=== PATIENT | male | born 1970 | race Caucasian/White ===

== ENCOUNTER 2018-02-26 06:29 | Emergency (ER) | payer OTHER ==
[2018-02-26 06:39] VITALS: PULSE 95
[2018-02-26] MEDS ORDERED: AMOXIL 500 MG PO ONE (07:05)
[2018-02-26] MEDS ORDERED: XYLOCAINE VISCOUS 2% 20 ML CUP PO ONE (07:05)
[2018-02-26] MEDS ORDERED: CETACAINE SPRAY TP ONE (07:06)
[2018-02-26] MEDS ORDERED: MAALOX ES 30 ML UNIT DOSE PO ONE (07:06)
--- NOTE | 2018-02-26 07:13 | ERPHSYRPT ---
- History of Present Illness Time Seen by Provider: 02/26/18 07:04 Source: patient Exam Limitations: no limitations Patient Subjective Stated Complaint: left side facial swelling and tooth pain x 3 days. staets broke off tooth. Triage Nursing Assessment: swollen left side of face.. pain in tooth. started 3 days ago.. no fever. Physician History: Pt developed left sided toothache, left facial swelling yesterday morning. He denies dental procedure, injury, severe headaches, vomiting, fever, other complaints, except nauseated. He is nonsmoker, denies any medical problems. Timing/Duration: gradual onset, days (2) Severity: severe ENT Location: facial, dental Prearrival Treatment: no prearrival treatment Modifying Factors: Improves With: nothing Associated Symptoms: denies symptoms Allergies/Adverse Reactions: No Known Drug Allergies Allergy (Unverified 06/03/16 00:21) Hx Tetanus, Diphtheria Vaccination/Date Given: Yes Hx Influenza Vaccination/Date Given: No Hx Pneumococcal Vaccination/Date Given: No Immunizations Up to Date: No - Review of Systems Constitutional: No Symptoms Ears, Nose, & Throat: Other (toothache, left facial swelling and pain), No Throat Swelling, No Hoarse, No Painful Swallowing All Other Systems: Reviewed and Negative - Past Medical History Pertinent Past Medical History: Yes Neurological History: No Pertinent History ENT History: No Pertinent History Cardiac History: No Pertinent History Respiratory History: No Pertinent History Endocrine Medical History: No Pertinent History Musculoskeletal History: No Pertinent History GI Medical History: No Pertinent History History: No Pertinent History Psycho-Social History: No Pertinent History Male Reproductive Disorders: No Pertinent History - Past Surgical History Past Surgical History: Yes Musculoskeletal: Orthopedic Surgery Other Surgical History: KNEE, PINS IN LEG - Social History Smoking Status: Never smoker Exposure to second hand smoke: No Drug Use: none Patient Lives Alone: No - Nursing Vital Signs Nursing Vital Signs: Initial Vital Signs Temperature 97.5 F 02/26/18 06:31 Pulse Rate 95 H 02/26/18 06:31 Blood Pressure 170/104 02/26/18 06:31 O2 Sat by Pulse Oximetry 95 02/26/18 06:31 Pain Scale Pain Intensity 8 - Physical Exam General Appearance: no apparent distress Eye Exam: bilateral eye: PERRL, EOMI Nasal Exam: normal inspection Throat Exam: normal, dental tenderness (left lower first molar (#30) : the crown is completely worn off, decayed, no gum swelling or discharge, left facial swelling, no redness or warmth.), No excessive drooling, No voice changes Neck Exam: normal inspection, non-tender, supple, trachea midline, No JVD, No lymphadenopathy (R), No lymphadenopathy (L) Cardiovascular/Respiratory Exam: chest non-tender, normal breath sounds, regular rate/rhythm, heart sounds normal, no respiratory distress, No no JVD Abdominal Exam: non-tender, soft Neurologic Exam: alert, oriented x 3, cooperative, normal mood/affect Skin Exam: normal color, warm, dry, No rash SpO2 Interpretation: normal SpO2: 95 Oxygen Delivery: Room Air - Course Nursing assessment & vital signs reviewed: Yes Ordered Tests: Medication Summary Discontinued Medications Generic Name Dose Route Start Last Admin Trade Name Freq PRN Reason Stop Dose Admin Al Hydrox/Mg Hydrox/Simethicone 30 ml 02/26/18 07:06 Maalox Es 30 Ml Unit Dose PO 02/26/18 07:07 STAT ONE Al Hydrox/Mg Hydrox/Simethicone Confirm 02/26/18 07:17 Maalox Es 30 Ml Unit Dose Administered 02/26/18 07:18 Dose 30 ml .ROUTE .STK-MED ONE Amoxicillin 500 mg 02/26/18 07:05 Amoxil 500 Mg PO 02/26/18 07:06 STAT ONE Amoxicillin Confirm 02/26/18 07:17 Amoxil 500 Mg Administered 02/26/18 07:18 Dose 500 mg .ROUTE .STK-MED ONE Benzocaine/Butamben/Tetracaine HCl 2 spray 02/26/18 07:06 Cetacaine [place] TP 02/26/18 07:07 ONCE ONE Lidocaine HCl 7.5 ml 02/26/18 07:05 Xylocaine Viscous 2% 20 Ml Cup PO 02/26/18 07:06 STAT ONE Lidocaine HCl Confirm 02/26/18 07:17 Xylocaine Hcl Viscous * Administered 02/26/18 07:18 Dose 1 ml .ROUTE .STK-MED ONE - Progress Progress: improved Progress Note: 02/26/18 07:18 Pt has been afebrile, no sign of difficulty breathing, stridor or distress. - Departure Time of Disposition: :18 Departure Disposition: Home Clinical Impression: Dental abscess Condition: Stable Critical Care Time: No Referrals: SAMMIE MORENO MD [Primary Care Provider] - Instructions: Tooth Abscess (DC), Tooth Decay, Adult (DC) Additional Instructions: Follow up with dentist, return if severe headaches, vomiting, high fever> 103 F , or difficulty swallowing! Prescriptions: Amoxicillin 500 mg PO TID 10 Days #30 capsule
[2018-02-26] MEDS ORDERED: AMOXIL 500 MG ONE (07:17)
[2018-02-26] MEDS ORDERED: MAALOX ES 30 ML UNIT DOSE ONE (07:17)
[2018-02-26] MEDS ORDERED: XYLOCAINE HCl Viscous ONE (07:17)
[2018-02-26 07:50] VITALS: BP 164/80; O2SAT 98
== END 2018-02-26 07:47 | disposition home or self-care (01) ==
LOC: ED 06:29
DX: K04.7 Periapical abscess without sinus (principal)
CPT/HCPCS: 99283; A9270-GY

== ENCOUNTER 2020-08-26 06:15 | Emergency (ER) | payer OTHER ==
[2020-08-26 06:27] VITALS: BP 155/94; O2SAT 98
[2020-08-26] MEDS ORDERED: Sodium Chloride 0.9% 1000 ML 1,000 ML IV STA (06:38)
[2020-08-26] MEDS ORDERED: Hydromorphone 1 mg/ml Injection IV ONE (06:38)
[2020-08-26] MEDS ORDERED: Zofran 4 MG/2 ML VIAL IV ONE (06:38)
[2020-08-26] MEDS ORDERED: Zofran 4 MG/2 ML VIAL ONE (06:44)
[2020-08-26] MEDS ORDERED: Hydromorphone 1 mg/ml Injection ONE (06:44)
[2020-08-26] MEDS ORDERED: Sodium Chloride 0.9% 1000 ML 1,000 ML ONE (06:44)
[2020-08-26 06:52] LABS: Absolute Neutrophil Ct (ANC) 3.26 (1.4-6.9); BASOPHIL % 0.5 % (0.0-0.4); Basophil (Absolute #) 0.04 (0-0.4); Eosinophil % 12.4 % (0.00-5.0); Eosinophil (Absolute #) 0.92 (0-0.5); Hematocrit 41.3 % (42-50); Hemoglobin 13.6 gm/dl (12.5-18.0); Lymphocyte (Absolute #) 2.34 (1.0-4.6); Lymphocytes % 31.7 % (24.0-44.0); Mean Cell Volume 98.1 fl (78-100); Mean Corpuscular Hemoglobin 32.3 pg (26-32); Mean Corpuscular Hgb Concent. 32.9 g/dl (32-36); Mean Platelet Volume 9.9 fl (7.5-11.0); Monocyte (Absolute #) 0.83 (0.0-1.3); Monocytes % 11.2 % (0.0-12.0); Neutrophil % 44.2 % (36.0-66.0); Platelet Count 263 K/mm3 (150-450); Red Blood Count 4.21 M/mm3 (4.1-5.6); Red Cell Distribution Width 13.6 % (11.5-14.0); White Blood Count 7.4 K/mm3 (4.0-10.5)
--- NOTE | 2020-08-26 06:53 | ERPHSYRPT ---
- History of Present Illness Historian: patient, family Exam Limitations: no limitations Patient Subjective Stated Complaint: pt states approx 2 days agohe began having pain in his back radiating around to his lt ribs and chest. pain worse with deep breath. Triage Nursing Assessment: pt alert and oriented, answers questions approp. pt ambulatory with steady gait noted. respirations nonlabored. skin warm and dry. pt reports tenderness to ltmid back around to axilla. Timing/Duration: day(s) (2), worse Activities at Onset: none Quality: sharpness, stabbing Abdominal Pain Onset Location: flank (Left flank) Pain Radiation: chest Severity of Pain-Max: moderate Severity of Pain-Current: moderate Modifying Factors: Improves With: nothing, other (Patient cannot get comfortable in any position.) Associated Symptoms: nausea Previous symptoms: same symptoms as today (But much worse) Hx Tetanus, Diphtheria Vaccination/Date Given: Yes Hx Influenza Vaccination/Date Given: No Hx Pneumococcal Vaccination/Date Given: No Immunizations Up to Date: Yes <TG ARNOLD - Last Filed: 08/26/20 06:47> <PALAK GUERRA - Last Filed: 08/26/20 14:51> - History of Present Illness Time Seen by Provider: 08/26/20 06:35 Physician History: This is a 49-year-old white male who has a history of back pain in the past and presents with 2-day history of left flank pain that radiates around into his chest. He does not have shortness of breath. He has no known history of kidney stones. He states he has this location of pain in his back a couple times a year. However yesterday, he sneezed hard and the pain became excruciating. He has never had this kind of pain before. He has no known hematuria. He is not on any blood thinning medicine. He states he has nausea but no vomiting. (TG ARNOLD) Allergies/Adverse Reactions: No Known Drug Allergies Allergy (Verified 08/26/20 06:36) Home Medications: Lisinopril 5 mg [Zestril 5 MG] 5 mg PO BID 08/26/20 [History] Nabumetone 750 mg PO BID 08/26/20 [History] Travel Risk - International Travel Have you traveled outside of the country in past 3 weeks: No - Coronavirus Screening Are you exhibiting any of the following symptoms?: No Close contact with a COVID-19 positive Pt in past 14-21 Days: No <TG ARNOLD - Last Filed: 08/26/20 06:47> - Review of Systems Constitutional: No Symptoms Eyes: No Symptoms Ears, Nose, & Throat: No Symptoms Respiratory: No Symptoms Cardiac: No Symptoms Abdominal/Gastrointestinal: No Symptoms Genitourinary Symptoms: Flank Pain (Left flank) Musculoskeletal: No Symptoms Skin: No Symptoms Neurological: No Symptoms Psychological: No Symptoms Endocrine: No Symptoms Hematologic/Lymphatic: No Symptoms Immunological/Allergic: No Symptoms All Other Systems: Reviewed and Negative <GT ARNOLD - Last Filed: 08/26/20 06:47> - Past Medical History Pertinent Past Medical History: Yes Neurological History: No Pertinent History ENT History: No Pertinent History Cardiac History: Hypertension Respiratory History: No Pertinent History Endocrine Medical History: No Pertinent History Musculoskeletal History: No Pertinent History GI Medical History: No Pertinent History History: No Pertinent History Psycho-Social History: No Pertinent History Male Reproductive Disorders: No Pertinent History - Past Surgical History Past Surgical History: Yes Musculoskeletal: Orthopedic Surgery Other Surgical History: KNEE, PINS IN LEG, carpal tunnel - Social History Smoking Status: Never smoker Exposure to second hand smoke: No Drug Use: none Patient Lives Alone: No <TG ARNOLD - Last Filed: 08/26/20 06:47> - Physical Exam General Appearance: moderate distress, alert, anxiety Eye Exam: PERRL/EOMI, eyes nml inspection Ears, Nose, Throat Exam: normal ENT inspection, moist mucous membranes Neck Exam: normal inspection, non-tender, supple, full range of motion Respiratory Exam: normal breath sounds, lungs clear, airway intact, No chest tenderness, No respiratory distress Cardiovascular Exam: regular rate/rhythm, normal heart sounds, normal peripheral pulses Gastrointestinal/Abdomen Exam: soft, normal bowel sounds, No tenderness Back Exam: normal inspection, normal range of motion, CVA tenderness (Left), No vertebral tenderness Extremity Exam: normal inspection, normal range of motion, pelvis stable Neurologic Exam: alert, oriented x 3, cooperative, 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, normal mood/affect, nml cerebellar function, nml station & gait, sensation nml Skin Exam: normal color, warm, dry Lymphatic Exam: No adenopathy SpO2 Interpretation: normal SpO2: 98 O2 Delivery: Room Air <TG ARNOLD - Last Filed: 08/26/20 06:47> - Nursing Vital Signs Nursing Vital Signs: Initial Vital Signs Temperature 97.4 F 08/26/20 06:16 Pulse Rate 68 08/26/20 06:16 Respiratory Rate 18 08/26/20 06:16 Blood Pressure 155/94 08/26/20 06:16 O2 Sat by Pulse Oximetry 98 08/26/20 06:16 Pain Scale Pain Intensity [Back] 8 Pain Intensity 0 - Course Nursing assessment & vital signs reviewed: Yes EKG Interpreted by Me: RATE (59), Sinus Rhythm, NORMAL AXIS, NORMAL INTERVALS, NORMAL QRS <TG ARNOLD - Last Filed: 08/26/20 06:47> - CT Exams Abdomen/Pelvis CT Interpretation: Negative, Discussed w/radiologist Chest CT Interpretation: Negative (CTA chest neg), Discussed w/radiologist <PALAK GUERRA - Last Filed: 08/26/20 14:51> Ordered Tests: Active Orders 24 hr Category Date Time Status EKG-ER Only STAT Care 08/26/20 06:38 Completed IV Insertion STAT Care 08/26/20 06:38 Completed ABDOMEN AND PELVIS W/0 CONTRAS [CT] Stat Exams 08/26/20 06:39 Completed CHEST WITH CONTRAST [CT] Urgent Exams 08/26/20 08:45 Completed AMYLASE Stat Lab 08/26/20 06:30 Completed CBC W DIFF Stat Lab 08/26/20 06:38 Completed CMP Stat Lab 08/26/20 06:30 Completed D-DIMER QUANTITATIVE Stat Lab 08/26/20 07:41 Completed LIPASE Stat Lab 08/26/20 06:30 Completed TROPONIN Q3H Lab 08/26/20 06:30 Completed UA W/RFX UR CULTURE Stat Lab 08/26/20 07:59 Completed Urine Triage Profile Stat Lab 08/26/20 07:59 Completed Medication Summary Discontinued Medications Generic Name Dose Route Start Last Admin Trade Name Freq PRN Reason Stop Dose Admin Hydromorphone HCl 1 mg 08/26/20 06:38 08/26/20 06:50 Hydromorphone 1 Mg/Ml Injection IV 08/26/20 06:39 1 mg STAT ONE Administration Hydromorphone HCl Confirm 08/26/20 06:44 Hydromorphone 1 Mg/Ml Injection Administered 08/26/20 06:45 Dose 1 mg .ROUTE .STK-MED ONE Sodium Chloride 1,000 mls @ 999 mls/hr 08/26/20 06:38 08/26/20 08:12 Sodium Chloride 0.9% 1000 Ml IV 08/26/20 07:38 Infused .Q1H1M STA Infusion Sodium Chloride Confirm 08/26/20 06:44 Sodium Chloride 0.9% 1000 Ml Administered 08/26/20 06:45 Dose 1,000 mls @ ud .ROUTE .STK-MED ONE Ondansetron HCl 4 mg 08/26/20 06:38 08/26/20 06:50 Zofran 4 Mg/2 Ml Vial IV 08/26/20 06:39 4 mg STAT ONE Administration Ondansetron HCl Confirm 08/26/20 06:44 Zofran 4 Mg/2 Ml Vial Administered 08/26/20 06:45 Dose 4 mg .ROUTE .STK-MED ONE Lab/Rad Data: Laboratory Result Diagrams 08/26/20 06:38 08/26/20 06:30 Laboratory Results 08/26/20 08/26/20 08/26/20 Range/Units 07:59 07:59 07:41 WBC (4.0-10.5) K/mm3 RBC (4.1-5.6) M/mm3 Hgb (12.5-18.0) gm/dl Hct (42-50) % MCV (78-100) fl MCH (26-32) pg MCHC (32-36) g/dl RDW (11.5-14.0) % Plt Count (150-450) K/mm3 MPV (7.5-11.0) fl Gran % (36.0-66.0) % Eos # (Auto) (0-0.5) Absolute Lymphs (auto) (1.0-4.6) Absolute Monos (auto) (0.0-1.3) Lymphocytes % (24.0-44.0) % Monocytes % (0.0-12.0) % Eosinophils % (0.00-5.0) % Basophils % (0.0-0.4) % Absolute Granulocytes (1.4-6.9) Basophils # (0-0.4) D-Dimer 290 (215-500) ng/mL Sodium (137-145) mmol/L Potassium (3.5-5.1) mmol/L Chloride (98-107) mmol/L Carbon Dioxide (22-30) mmol/L Anion Gap (5-15) MEQ/L BUN (9-20) mg/dL Creatinine (0.66-1.25) mg/dL Estimated GFR ML/MIN Glucose (74-106) mg/dL Calcium (8.4-10.2) mg/dL Total Bilirubin (0.2-1.3) mg/dL AST (17-59) U/L ALT (0-50) U/L Alkaline Phosphatase (38-126) U/L Troponin I (0.000-0.034) ng/mL Serum Total Protein (6.3-8.2) g/dL Albumin (3.5-5.0) g/dL Amylase (30-110) U/L Lipase (23-300) U/L Urine Color STRAW (YELLOW) Urine Appearance CLEAR (CLEAR) Urine pH 6.0 (5-6) Ur Specific Iva 1.011 (1.005-1.025) Urine Protein NEGATIVE (Negative) Urine Ketones NEGATIVE (NEGATIVE) Urine Blood NEGATIVE (0-5) Jama/ul Urine Nitrite NEGATIVE (NEGATIVE) Urine Bilirubin NEGATIVE (NEGATIVE) Urine Urobilinogen NEGATIVE (0-1) mg/dL Ur Leukocyte Esterase NEGATIVE (NEGATIVE) Urine WBC (Auto) NONE (0-5) /HPF Urine RBC (Auto) NONE (0-2) /HPF U Epithel Cells (Auto) NONE (FEW) /HPF Urine Bacteria (Auto) NONE (NEGATIVE) /HPF Urine Culture Reflexed NO (NO) Urine Glucose NEGATIVE (NEGATIVE) mg/dL Urine Opiates Level NEGATIVE (NEGATIVE) Ur Methadone NEGATIVE (NEGATIVE) Urine Barbiturates NEGATIVE (NEGATIVE) Ur Phencyclidine (PCP) NEGATIVE (NEGATIVE) Urine Amphetamine NEGATIVE (NEGATIVE) U Benzodiazepine Level NEGATIVE (NEGATIVE) Urine Cocaine NEGATIVE (NEGATIVE) Urine Marijuana (THC) POSITIVE (NEGATIVE) 08/26/20 08/26/20 08/26/20 Range/Units 06:38 06:30 06:30 WBC 7.4 (4.0-10.5) K/mm3 RBC 4.21 (4.1-5.6) M/mm3 Hgb 13.6 (12.5-18.0) gm/dl Hct 41.3 L (42-50) % MCV 98.1 (78-100) fl MCH 32.3 H (26-32) pg MCHC 32.9 (32-36) g/dl RDW 13.6 (11.5-14.0) % Plt Count 263 (150-450) K/mm3 MPV 9.9 (7.5-11.0) fl Gran % 44.2 (36.0-66.0) % Eos # (Auto) 0.92 H (0-0.5) Absolute Lymphs (auto) 2.34 (1.0-4.6) Absolute Monos (auto) 0.83 (0.0-1.3) Lymphocytes % 31.7 (24.0-44.0) % Monocytes % 11.2 (0.0-12.0) % Eosinophils % 12.4 H (0.00-5.0) % Basophils % 0.5 (0.0-0.4) % Absolute Granulocytes 3.26 (1.4-6.9) Basophils # 0.04 (0-0.4) D-Dimer (215-500) ng/mL Sodium 136 L (137-145) mmol/L Potassium 4.7 (3.5-5.1) mmol/L Chloride 107 (98-107) mmol/L Carbon Dioxide 25 (22-30) mmol/L Anion Gap 9.2 (5-15) MEQ/L BUN 23 H (9-20) mg/dL Creatinine 0.93 (0.66-1.25) mg/dL Estimated GFR > 60.0 ML/MIN Glucose 107 H (74-106) mg/dL Calcium 9.5 (8.4-10.2) mg/dL Total Bilirubin 0.30 (0.2-1.3) mg/dL AST 23 (17-59) U/L ALT 26 (0-50) U/L Alkaline Phosphatase 68 (38-126) U/L Troponin I < 0.012 (0.000-0.034) ng/mL Serum Total Protein 7.2 (6.3-8.2) g/dL Albumin 4.3 (3.5-5.0) g/dL Amylase 93 (30-110) U/L Lipase 200 (23-300) U/L Urine Color (YELLOW) Urine Appearance (CLEAR) Urine pH (5-6) Ur Specific Iva (1.005-1.025) Urine Protein (Negative) Urine Ketones (NEGATIVE) Urine Blood (0-5) Jama/ul Urine Nitrite (NEGATIVE) Urine Bilirubin (NEGATIVE) Urine Urobilinogen (0-1) mg/dL Ur Leukocyte Esterase (NEGATIVE) Urine WBC (Auto) (0-5) /HPF Urine RBC (Auto) (0-2) /HPF U Epithel Cells (Auto) (FEW) /HPF Urine Bacteria (Auto) (NEGATIVE) /HPF Urine Culture Reflexed (NO) Urine Glucose (NEGATIVE) mg/dL Urine Opiates Level (NEGATIVE) Ur Methadone (NEGATIVE) Urine Barbiturates (NEGATIVE) Ur Phencyclidine (PCP) (NEGATIVE) Urine Amphetamine (NEGATIVE) U Benzodiazepine Level (NEGATIVE) Urine Cocaine (NEGATIVE) Urine Marijuana (THC) (NEGATIVE) <TG ARNOLD - Last Filed: 08/26/20 06:47> - Progress Counseled pt/family regarding: lab results, diagnosis, need for follow-up, rad results <PALAK GUERRA - Last Filed: 08/26/20 14:51> - Progress Progress Note: 08/26/20 06:[address] Mobley at shift change. I reviewed the patient history, c ondition and pending laboratory data and x-ray studies. He accepts the patient in transfer. (TG ARNOLD) 08/26/20 07:41 Picked up pt at shift change w L infrascapular pain x 3 days. Pt denies injury and had similar pain 5 yrs ago wo diagnosis. Pain is 8/10 and improved since arrival. He states that bending makes the pain worse. He denies chest pain/fever/N/V/cough. 08/26/20 07:44 Labs, including CBC/CMP/Trop wnl. CT ab-pelvis WNL/EKG borderline sinus evelyn, nothing acute Pt's pain much improved 08/26/20 09:06 Pt states pain much improved. Pain most likely muscular as sub-scapular arera TTP. 08/26/20 14:50 CTA chest neg per Rad (CHARLIEPALAK) - Departure Departure Disposition: Home Critical Care Time: No <TG ARNOLD - Last Filed: 08/26/20 06:47> - Departure Departure Disposition: Home Critical Care Time: No <PALAK GUERRA - Last Filed: 08/26/20 14:51> - Departure Clinical Impression: Flank pain, Muscle strain Condition: Stable Referrals: SAMMIE MORENO MD [Primary Care Provider] - Instructions: Muscle Strain Additional Instructions: Rest/Heat/Massage Follow up with family MD Pain meds asn muscle relaxers as needed Return to ER for increasing pain/Temperature greater than 100.5/Shortness of breath Prescriptions: Hydrocodone/APAP 10/325 mg [[place] 10/325 MG Tablet] 1 tab PO Q4H PRN PRN #7 tablet MDD 3 PRN Reason: Pain Orphenadrine Citrate 100 mg [Norflex 100 MG Tablet] 100 mg PO BID PRN PRN #12 tab PRN Reason: Pain
[2020-08-26 07:23] LABS: ALBUMIN 4.3 g/dL (3.5-5.0); ALKALINE PHOSPHATASE 68 U/L (38-126); AMYLASE 93 U/L (30-110); ANION GAP 9.2 MEQ/L (5-15); BLOOD UREA NITROGEN 23 mg/dL (9-20); CHLORIDE 107 mmol/L (98-107); Calcium 9.5 mg/dL (8.4-10.2); Carbon Dioxide 25 mmol/L (22-30); Creatinine 1 0.93 mg/dL (0.66-1.25); EST GLOMERULAR FILTRATION RATE > 60.0 ML/MIN; Glucose 107 mg/dL (74-106); LIPASE 200 U/L (23-300); Potassium 4.7 mmol/L (3.5-5.1); SGOT/AST 23 U/L (17-59); SGPT/ALT 26 U/L (0-50); SODIUM 136 mmol/L (137-145); Total Protein 7.2 g/dL (6.3-8.2)
[2020-08-26 08:07] LABS: Appearance CLEAR (CLEAR); Bilirubin NEGATIVE (NEGATIVE); Blood NEGATIVE Ery/ul (0-5); Glucose NEGATIVE (NEGATIVE); Ketones NEGATIVE (NEGATIVE); Leukocyte Esterase NEGATIVE (NEGATIVE); Nitrite NEGATIVE (NEGATIVE); Protein,Urine Dip NEGATIVE (Negative); Specific Gravity 1.011 (1.005-1.025); Urobilinogen NEGATIVE mg/dL (0-1)
[2020-08-26 08:13] VITALS: PULSE 50
[2020-08-26 08:24] LABS: Amphetamine,Urine NEGATIVE (NEGATIVE); Barbiturate,Urine NEGATIVE (NEGATIVE); Benzodiazepine,Urine NEGATIVE (NEGATIVE); Cocaine,Urine NEGATIVE (NEGATIVE); Methadone,Urine NEGATIVE (NEGATIVE); Opiate,Urine NEGATIVE (NEGATIVE); PCP,Urine NEGATIVE (NEGATIVE); THC,Urine POSITIVE (NEGATIVE)
--- NOTE | 2020-08-26 08:44 | XRAY ---
Indication: Left flank pain 3 days. No known injury. Multiple contiguous axial images obtained through the abdomen and pelvis without contrast using renal stone protocol. Comparison: None Lung bases demonstrate mild bilateral dependent atelectasis. No infiltrate or effusion. Heart is not enlarged. No renal calculus or evidence for obstructive uropathy in either system. Noncontrasted stomach and bowel loops appear nonobstructed. Normal appendix. Minimal sigmoid diverticulosis. No free fluid/air. Remaining liver, gallbladder, pancreas, spleen, adrenal glands, kidneys, ureters, and bladder appear unremarkable for noncontrast exam. Minimal aortic calcifications without AAA. Osseous structures intact with mild/moderate degenerative changes throughout the thoracolumbar spine. Impression: 1. Negative renal calculus or evidence for obstructive uropathy. 2. Incidental sigmoid diverticulosis and chronic bony findings. 3. Remaining CT abdomen/pelvis without contrast exam is negative.
--- NOTE | 2020-08-26 08:56 | XRAY ---
Indication: "Muscle spasm when bending over." Left shoulder pain. Multiple contiguous axial images obtained through the chest using 80 cc Isovue 370 contrast and PE protocol. Comparison: None There is good opacification of the pulmonary arteries to include the lobar and segmental branches. No pulmonary embolus. Heart is not enlarged. Aorta is normal in course and caliber. A few tiny mediastinal/left hilar calcified nodes. No pathologic mediastinal/hilar lymphadenopathy. Lungs demonstrates mild bilateral dependent atelectasis and tiny left lower lobe calcified granuloma. No suspicious pulmonary mass, infiltrate, or effusion. Bony thorax intact with mild degenerative changes throughout the spine. CT abdomen/pelvis reported separately. Impression: Negative pulmonary embolus. Incidental old granulomatous disease. Remaining CT chest with contrast exam is negative.
== END 2020-08-26 09:23 | disposition home or self-care (01) ==
LOC: ED 06:15
DX: R10.9 Unspecified abdominal pain (principal); T14.8XXA Other injury of unspecified body region, initial encounter
CPT/HCPCS: 36000; 36415; 71260; 74176; 80053; 80307; 81001; 82150; 83690; 84484; 85025; 85379; 93005; 96360; 96374; 96375; 99284; J1170; J2405

== ENCOUNTER 2022-01-26 10:05 | Day surgery (SDC) | payer OTHER ==
[2022-01-26] MEDS ORDERED: Xylocaine 1% Vial 30 ML PF IJ ONE (10:06)
[2022-01-26] MEDS ORDERED: Depo-Medrol 40 MG/ML IM ONE (10:06)
[2022-01-26] MEDS ORDERED: BUPIVACAINE 0.5% VIAL IJ ONE (10:06)
[2022-01-26] MEDS ORDERED: Decadron 4 MG INJ IV ONE (10:06)
[2022-01-26] MEDS ORDERED: DIPRIVAN 200 MG/20 ML IV ONE (11:53)
[2022-01-26] MEDS ORDERED: Lactated Ringers 1,000 ML IV ONE (12:17)
--- NOTE | 2022-01-26 13:11 | XRAY ---
Indication: Left SI joint and piriformis muscle injection. Intraoperative fluoroscopy provided for 31 seconds. 3 digital spot images submitted for interpretation demonstrates posterior needle tip projecting over the inferior left SI joint. Second needle tip projects over the left piriformis muscle with small amount of contrast injected for needle tip placement. Correlate with intraoperative findings/report.
--- NOTE | 2022-01-26 15:32 | XRAY ---
31 seconds of fluoroscopy was used in surgery for a left sacroiliac and left piriformis injection.
== END 2022-01-26 12:20 | disposition home or self-care (01) ==
LOC: SDC-PAIN 10:05
PROVIDERS: ATTEND Psychiatry & Neurology Pain Medicine
DX: M46.1 Sacroiliitis, not elsewhere classified (principal); M79.18 Myalgia, other site; Z79.899 Other long term (current) drug therapy
CPT/HCPCS: 20552; 27096; 72202; 76942; 77002; G0260; J1030; J1100; J2001; J2704; Q9966

== ENCOUNTER 2022-02-15 11:39 | Day surgery (SDC) | payer OTHER ==
[2022-02-15] MEDS ORDERED: BUPIVACAINE 0.5% VIAL IJ ONE (11:40)
[2022-02-15] MEDS ORDERED: Decadron 4 MG INJ IV ONE (11:40)
[2022-02-15] MEDS ORDERED: Depo-Medrol 40 MG/ML IM ONE (11:40)
[2022-02-15] MEDS ORDERED: Xylocaine 1% Vial 30 ML PF IJ ONE (11:40)
[2022-02-15] MEDS ORDERED: Lactated Ringers 1,000 ML IV ONE (14:05)
[2022-02-15] MEDS ORDERED: DIPRIVAN 200 MG/20 ML IV ONE (14:11)
--- NOTE | 2022-02-15 16:42 | XRAY ---
Indication: Left hip and left piriformis injections. Intraoperative fluoroscopy provided for 20 seconds. 2 digital spot images obtained prone submitted for interpretation demonstrates demonstrates needle tip projecting lateral to the left femur neck. Second needle tip projects over the left piriformis muscle. Small amount of contrast injected for both needle tip placement. Correlate with intraoperative findings/report.
--- NOTE | 2022-02-15 16:44 | XRAY ---
20 seconds fluoroscopy time in surgery for injection of the intra-articular joint space of the left hip and the left piriformis muscle.
== END 2022-02-15 14:35 | disposition home or self-care (01) ==
LOC: SDC-PAIN 11:39
PROVIDERS: ATTEND Psychiatry & Neurology Pain Medicine
DX: M16.12 Unilateral primary osteoarthritis, left hip (principal); M79.18 Myalgia, other site; Z79.899 Other long term (current) drug therapy
CPT/HCPCS: 20552; 20610; 73502; 77002; J1030; J1100; J2001; J2704; Q9966

== ENCOUNTER 2022-03-14 16:28 | Emergency (ER) | payer OTHER ==
[2022-03-14] MEDS ORDERED: Adacel Vial IM ONE ×2 (17:50→17:55)
[2022-03-14] MEDS ORDERED: XYLOCAINE 2% HCL 20 ML MDV IJ ONE (17:50)
[2022-03-14] MEDS ORDERED: Sodium Chloride 0.9% 1000 ML 1,000 ML ONE (17:54)
[2022-03-14] MEDS ORDERED: XYLOCAINE 2% HCL 20 ML MDV ONE (17:57)
[2022-03-14] MEDS ORDERED: Sodium Chloride 0.9% 1000 ML 1,000 ML IV SCH (18:00)
[2022-03-14 18:17] LABS: Absolute Neutrophil Ct (ANC) 6.27 (1.4-6.9); Basophil (Absolute #) 0.04 (0-0.4); Eosinophil % 3.1 % (0.00-5.0); Eosinophil (Absolute #) 0.32 (0-0.5); Hematocrit 40.9 % (42-50); Hemoglobin 13.6 gm/dl (12.5-18.0); Lymphocyte (Absolute #) 2.46 (1.0-4.6); Lymphocytes % 24.2 % (24.0-44.0); Mean Cell Volume 95.1 fl (78-100); Mean Corpuscular Hemoglobin 31.6 pg (26-32); Mean Corpuscular Hgb Concent. 33.3 g/dl (32-36); Mean Platelet Volume 9.6 fl (7.5-11.0); Monocyte (Absolute #) 1.07 (0.0-1.3); Monocytes % 10.5 % (0.0-12.0); Neutrophil % 61.8 % (36.0-66.0); Platelet Count 294 K/mm3 (150-450); Red Cell Distribution Width 13.7 % (11.5-14.0); White Blood Count 10.2 K/mm3 (4.0-10.5)
--- NOTE | 2022-03-14 18:27 | ERPHSYRPT ---
- History of Present Illness Time Seen by Provider: 03/14/22 16:55 Source: patient Exam Limitations: no limitations Patient Subjective Stated Complaint: pt states ""I was chasing a althea and cut my leg on barbwire." Triage Nursing Assessment: pt ambulated into the er; pt is axo x4; c/o laceration; left upper calf laceration measures 4.5 cm x 1.5 cm x 1 cm; middle calf measure 1.5 cm x 0.75; minimal bleeding present; vitals wnl Physician History: Patient is a 51-year-old male presents to emergency department for evaluation of a laceration to the popliteal fossa. Patient states he was chasing someone jumped over a barbed wire fence and lacerated his right popliteal fossa. Injury occurred just prior to arrival. Pain described as an ache that is well localized. No radiation. Patient ambulatory. Tetanus not up-to-date. Patient is otherwise healthy. He voices no other complaints or concerns at this time. Timing/Duration: today Severity: moderate Modifying Factors: Improves With: nothing Associated Symptoms: denies symptoms Allergies/Adverse Reactions: No Known Drug Allergies Allergy (Verified 03/14/22 16:46) Home Medications: Lisinopril 5 mg [Zestril 5 MG] 5 mg PO BID 08/26/20 [History] Nabumetone 750 mg PO BID 08/26/20 [History] Hx Tetanus, Diphtheria Vaccination/Date Given: No Hx Influenza Vaccination/Date Given: No Hx Pneumococcal Vaccination/Date Given: No Travel Risk - International Travel Have you traveled outside of the country in past 3 weeks: No - Coronavirus Screening Are you exhibiting any of the following symptoms?: No Close contact with a COVID-19 positive Pt in past 14-21 Days: No - Vaccine Status Have you recieved a Covid-19 vaccination: No - Review of Systems Constitutional: No Symptoms, No Fever, No Chills Eyes: No Symptoms Ears, Nose, & Throat: No Symptoms Respiratory: No Symptoms, No Cough, No Dyspnea Cardiac: No Symptoms, No Chest Pain, No Edema, No Syncope Abdominal/Gastrointestinal: No Symptoms, No Abdominal Pain, No Nausea, No Vomiting, No Diarrhea Genitourinary Symptoms: No Symptoms, No Dysuria Musculoskeletal: No Symptoms, No Back Pain, No Neck Pain Skin: No Symptoms, No Rash Neurological: No Symptoms, No Dizziness, No Focal Weakness, No Sensory Changes Psychological: No Symptoms Endocrine: No Symptoms Hematologic/Lymphatic: No Symptoms Immunological/Allergic: No Symptoms All Other Systems: Reviewed and Negative - Past Medical History Pertinent Past Medical History: Yes Neurological History: No Pertinent History ENT History: No Pertinent History Cardiac History: Hypertension Respiratory History: No Pertinent History Endocrine Medical History: No Pertinent History Musculoskeletal History: No Pertinent History GI Medical History: No Pertinent History History: No Pertinent History Psycho-Social History: No Pertinent History Male Reproductive Disorders: No Pertinent History - Past Surgical History Past Surgical History: Yes Musculoskeletal: Orthopedic Surgery Other Surgical History: KNEE, PINS IN LEG, carpal tunnel - Social History Smoking Status: Never smoker Exposure to second hand smoke: No Drug Use: none Patient Lives Alone: No - Nursing Vital Signs Nursing Vital Signs: Initial Vital Signs Temperature 97.8 F 03/14/22 16:46 Pulse Rate 76 03/14/22 16:46 Respiratory Rate 18 03/14/22 16:46 Blood Pressure 149/98 03/14/22 16:46 O2 Sat by Pulse Oximetry 98 03/14/22 16:46 Pain Scale Pain Intensity 6 - Physical Exam General Appearance: no apparent distress, alert Eye Exam: PERRL/EOMI, eyes nml inspection Ears, Nose, Throat Exam: normal ENT inspection, TMs normal, pharynx normal, moist mucous membranes Neck Exam: normal inspection, non-tender, supple, full range of motion Respiratory Exam: normal breath sounds, lungs clear, airway intact, No respiratory distress Cardiovascular Exam: regular rate/rhythm, normal heart sounds, normal peripheral pulses Gastrointestinal/Abdomen Exam: soft, normal bowel sounds, No tenderness, No mass Back Exam: normal inspection, normal range of motion, No CVA tenderness, No vertebral tenderness Extremity Exam: normal inspection, normal range of motion, pelvis stable, other (Laceration in the popliteal fossa adjacent to the popliteal artery. No obvious bleeding or injury to the popliteal artery. PT DP pulse palpable.) Neurologic Exam: alert, oriented x 3, cooperative, normal mood/affect, nml cerebellar function, nml station & gait, sensation nml, No motor deficits Skin Exam: normal color, warm, dry, other (There is a 3 cm laceration at the posterior aspect of the right popliteal fossa. The laceration is just adjacent to the location of the popliteal artery.), No rash Lymphatic Exam: No adenopathy SpO2 Interpretation: normal SpO2: 97 O2 Delivery: Room Air Procedures - Laceration/Wound Repair Posterior Knee Time of Procedure: 20:51 Wound Location: Right Wound Length (cm): 4 Wound Explored: clean Irrigated: Yes Hibiclens Prep: Yes Anesthesia: 2% Lidocaine Volume Anesthetic (ccs): 3 Wound Debrided: No debridement indicated Wound Repaired With: sutures Suture Size/Type: 4-0, nylon Number of Sutures: 9 Layer Closure?: Yes Sterile Dressing Applied?: Yes Splint Applied?: No - Course Nursing assessment & vital signs reviewed: Yes - CT Exams Lower Extremity CT Interpretation: Tele-radiologist Report (No comps normal CTA right lower ex tremity) Ordered Tests: Active Orders 24 hr Category Date Time Status Pulse Oximetry (ED) STAT Care 03/14/22 17:47 Active CTA LOWER EXTREMITY W CONTRAST [CT] Stat Exams 03/14/22 17:49 Taken CBC W DIFF Stat Lab 03/14/22 18:12 Completed CMP Stat Lab 03/14/22 18:12 Completed Medication Summary Generic Name Dose Route Start Last Admin Trade Name Freq PRN Reason Stop Dose Admin Sodium Chloride 1,000 mls @ 100 mls/hr 03/14/22 18:00 03/14/22 17:56 Sodium Chloride 0.9% 1000 Ml IV 04/13/22 17:59 100 mls/hr .Q10H HYUN Administration Discontinued Medications Generic Name Dose Route Start Last Admin Trade Name Freq PRN Reason Stop Dose Admin Cephalexin HCl 500 mg 03/14/22 20:46 Cephalexin Mh500 Mg Capsule PO 03/14/22 20:47 STAT ONE Diphtheria/Tetanus/Acell Pertussis 0.5 ml 03/14/22 17:50 03/14/22 17:58 Tdap --Diph,Pertuss(Acell),Tet Vac/Pf 0.5 Ml Vial IM 03/14/22 17:51 0.5 ml .ONCE ONE Administration Diphtheria/Tetanus/Acell Pertussis Confirm 03/14/22 17:55 Tdap --Diph,Pertuss(Acell),Tet Vac/Pf 0.5 Ml Vial Administered 03/14/22 17:56 Dose 0.5 ml IM .STK-MED ONE Lidocaine HCl 5 ml 03/14/22 17:50 03/14/22 17:58 Lidocaine Hcl 2% 20 Ml Mdv IJ 03/14/22 17:51 5 ml STAT ONE Administration Lidocaine HCl Confirm 03/14/22 17:57 Lidocaine Hcl 2% 20 Ml Mdv Administered 03/14/22 17:58 Dose 5 ml .ROUTE .STK-MED ONE Morphine Sulfate 4 mg 03/14/22 18:54 03/14/22 18:56 Morphine Sulfate 4 Mg/Ml Injection IV 03/14/22 18:55 4 mg STAT ONE Administration Morphine Sulfate Confirm 03/14/22 18:55 Morphine Sulfate 4 Mg/Ml Injection Administered 03/14/22 18:56 Dose 4 mg .ROUTE .STK-MED ONE Lab/Rad Data: Laboratory Result Diagrams 03/14/22 18:12 03/14/22 18:12 Laboratory Results 03/14/22 03/14/22 Range/Units 18:12 18:12 WBC 10.2 (4.0-10.5) K/mm3 RBC 4.30 (4.1-5.6) M/mm3 Hgb 13.6 (12.5-18.0) gm/dl Hct 40.9 L (42-50) % MCV 95.1 (78-100) fl MCH 31.6 (26-32) pg MCHC 33.3 (32-36) g/dl RDW 13.7 (11.5-14.0) % Plt Count 294 (150-450) K/mm3 MPV 9.6 (7.5-11.0) fl Gran % 61.8 (36.0-66.0) % Eos # (Auto) 0.32 (0-0.5) Absolute Lymphs (auto) 2.46 (1.0-4.6) Absolute Monos (auto) 1.07 (0.0-1.3) Lymphocytes % 24.2 (24.0-44.0) % Monocytes % 10.5 (0.0-12.0) % Eosinophils % 3.1 (0.00-5.0) % Basophils % 0.4 (0.0-0.4) % Absolute Granulocytes 6.27 (1.4-6.9) Basophils # 0.04 (0-0.4) Sodium 141 (137-145) mmol/L Potassium 4.2 (3.5-5.1) mmol/L Chloride 106 (98-107) mmol/L Carbon Dioxide 25 (22-30) mmol/L Anion Gap 13.4 (5-15) MEQ/L BUN 20 (9-20) mg/dL Creatinine 0.85 (0.66-1.25) mg/dL Estimated GFR > 60.0 ML/MIN Glucose 81 (74-106) mg/dL Calcium 9.3 (8.4-10.2) mg/dL Total Bilirubin 0.40 (0.2-1.3) mg/dL AST 22 (17-59) U/L ALT 21 (0-50) U/L Alkaline Phosphatase 55 (38-126) U/L Serum Total Protein 7.1 (6.3-8.2) g/dL Albumin 4.2 (3.5-5.0) g/dL - Progress Progress: improved Progress Note: Laceration occurred very close proximity to the popliteal artery. PT DP pulses palpable. CTA right lower extremity performed to assess the integrity of the popliteal artery. Radiologist report shows the CTA is nonremarkable. The laceration was closed. There was a larger laceration measuring approximately 4.5 cm. The smaller V-shaped laceration that was closed using 3 sutures. Patient tolerated procedure well. Patient received a dose of Keflex in our ED. A prescription for the same was forwarded to patient's pharmacy. Patient agrees to follow-up with primary care doctor within 48 hours for evaluation. Patient voices no other complaints or concerns at this time. Portions of this note were created with voice recognition technology. There may be grammatical, spelling, punctuation or sound alike errors 03/14/22 20:52 Counseled pt/family regarding: lab results, diagnosis, need for follow-up, rad results - Departure Departure Disposition: Home Clinical Impression: Laceration Condition: Stable Critical Care Time: No Referrals: SAMMIE MORENO MD [Primary Care Provider] - Follow up/PCP as directed Additional Instructions: Discharge/Care Plan PALAK MASTERS was seen on 03/14/22 in the Emergency Room. The patient was counseled regarding Diagnosis,Lab results, Imaging studies, need for follow up and when to return to the Emergency Room. Prescriptions given: Discharge Note I have spoken with the patient and/or caregivers. I have explained the patient's condition, diagnosis and treatment plan based on the information available to me at this time. I have answered the patient's and/or caregiver's questions and addressed any concerns. The patient and/or caregivers have as good understanding of the patient's diagnosis, condition and treatment plan as can be expected at this point. The vital signs have been stable. The patient's condition is stable and appropriate for discharge from the emergency department. The patient will pursue further outpatient evaluation with the primary care physician or other designated or consulting physician as outlined in the discharge instructions. The patient and/or caregivers are agreeable to this plan of care and follow-up instructions have been explained in detail. The patient and/or caregivers have received these instruction. The patient/and or caregivers are aware that any significant change in condition or worsening of symptoms should prompt an immediate return to this or the closest emergency department or call 911. Prescriptions: Cephalexin Mh 500 mg [Keflex 500 mg] 500 mg PO TID #21 cap
[2022-03-14 18:37] LABS: ALBUMIN 4.2 g/dL (3.5-5.0); ALKALINE PHOSPHATASE 55 U/L (38-126); ANION GAP 13.4 MEQ/L (5-15); BLOOD UREA NITROGEN 20 mg/dL (9-20); CHLORIDE 106 mmol/L (98-107); Calcium 9.3 mg/dL (8.4-10.2); Carbon Dioxide 25 mmol/L (22-30); Creatinine 1 0.85 mg/dL (0.66-1.25); EST GLOMERULAR FILTRATION RATE > 60.0 ML/MIN; Glucose 81 mg/dL (74-106); Potassium 4.2 mmol/L (3.5-5.1); SGOT/AST 22 U/L (17-59); SGPT/ALT 21 U/L (0-50); SODIUM 141 mmol/L (137-145); Total Protein 7.1 g/dL (6.3-8.2)
[2022-03-14] MEDS ORDERED: MORPHINE SULFATE 4 MG INJ IV ONE (18:54)
[2022-03-14] MEDS ORDERED: MORPHINE SULFATE 4 MG INJ ONE (18:55)
[2022-03-14 19:29] VITALS: BP 141/87; PULSE 68
[2022-03-14 20:30] VITALS: O2SAT 97
[2022-03-14] MEDS ORDERED: KEFLEX 500 MG PO ONE (20:46)
[2022-03-14] MEDS ORDERED: KEFLEX 500 MG ONE (20:53)
--- NOTE | 2022-03-15 08:52 | XRAY ---
Indication: Posterior right knee laceration. Popliteal artery "bleed." Conventional contrast enhanced CTA both lower extremities performed from mid abdomen to the proximal lower legs. Two-dimensional sagittal and coronal reformatted images obtained. Additional 3-dimensional reformatted images obtained using separate workstation. Comparison: None Visualized abdominal aorta is minimally arteriosclerotic without aneurysm/dissection. Widely patent 2 right/single left main renal arteries and superior mesenteric artery. Normal CTA appearance to both common iliac, internal/external iliac, common femoral, deep femoral, superficial femoral, popliteal, tibial peroneal trunk, and proximal trifurcation vessels. Posterior right knee demonstrates tiny cutaneous/subcutaneous laceration. No free fluid or evidence for active hemorrhage. Visualized inferior liver demonstrates fatty attenuation. Visualized bowel loops appear nonobstructed. Remaining visualized pancreatic head, kidneys, ureters, and bladder are unremarkable. No pathologic retroperitoneal lymphadenopathy. Osseous structures intact. Impression: Minimally arteriosclerotic visualized abdominal aorta without aneurysm. Remaining CTA of visualized lower extremities are normal.
== END 2022-03-14 21:00 | disposition home or self-care (01) ==
LOC: ED 16:28
DX: S81.011A Laceration without foreign body, right knee, initial encounter (principal); W45.8XXA Other foreign body or object entering through skin, initial encounter; W22.09XA Striking against other stationary object, initial encounter; Y93.39 Activity, other involving climbing, rappelling and jumping off; I10 Essential (primary) hypertension; Z79.899 Other long term (current) drug therapy
CPT/HCPCS: 12031; 36000; 36415; 73706; 80053; 85025; 90471; 90715; 94760; 96372; 96374; 96375; 99284; J2270; A9270-GY

== ENCOUNTER 2022-06-14 16:05 | Day surgery (SDC) | payer OTHER ==
[2022-06-14] MEDS ORDERED: Marcaine Mpf 0.5% Vial 30 Ml IJ ONE (16:06)
[2022-06-14] MEDS ORDERED: Depo-Medrol 40 MG/ML IM ONE (16:06)
[2022-06-14] MEDS ORDERED: Decadron 4 MG INJ IJ ONE (16:06)
[2022-06-14] MEDS ORDERED: XYLOCAINE-MPF 1% 5ML SDV IJ ONE (16:06)
--- NOTE | 2022-06-14 19:48 | XRAY ---
Indication: Left hip and the left piriformis injection. Intraoperative fluoroscopy provided for 57 seconds. 2 digital spot image obtained prone submitted for interpretation demonstrates needle tip projecting lateral to the left femur neck. Second needle tip projects over the left piriformis muscle. Small amount of contrast injected for both needle tip placement. Correlate with intraoperative findings/report.
--- NOTE | 2022-06-15 08:43 | XRAY ---
57 seconds of fluoroscopy was used in surgery for a left hip intra-articular injection and a left piriformis injection.
== END 2022-06-14 18:25 | disposition home or self-care (01) ==
LOC: SDC-PAIN 16:05
PROVIDERS: ATTEND Psychiatry & Neurology Pain Medicine
DX: M16.11 Unilateral primary osteoarthritis, right hip (principal); M79.18 Myalgia, other site; Z79.899 Other long term (current) drug therapy
CPT/HCPCS: 20552; 20610; 73501; 77002; J1030; J1100; Q9966

== ENCOUNTER 2022-11-02 10:29 | Emergency (ER) | payer OTHER ==
--- NOTE | 2022-11-02 10:34 | ERPHSYRPT ---
- History of Present Illness Time Seen by Provider: 11/02/22 10:34 Source: patient Exam Limitations: no limitations Physician History: This is a 52-year-old white male patient of Dr. Moreno and pain specialist Dr. Albarran and presents with right knee pain that been present for 2 days. Patient states that he had been having some problems chronically with his left knee and he went to work 2 days ago and at 1 point had to step with his right leg down and when it hit the ground it slipped on snow, patient fell and his right knee bent backwards. Patient states that he has had pain ever since. It is worse with ambulation. Patient attempted to go to work today but there was increased pain with ambulation. Patient states that he took a [place] this morning prior to going to work. They typically cause him to get heartburn and nausea. Patient drove himself into the hospital. Method of Injury: fell Occurred: days ago (2) Quality: constant, aching Severity of Pain-Max: moderate Severity of Pain-Current: moderate Lower Extremities Pain: knee: right Modifying Factors: Improves With: movement Associated Symptoms: other (Hurts to bear weight) Allergies/Adverse Reactions: No Known Drug Allergies Allergy (Verified 11/02/22 10:33) Home Medications: Lisinopril 5 mg [Zestril 5 MG] 5 mg PO BID 08/26/20 [History] Hx Tetanus, Diphtheria Vaccination/Date Given: No Hx Influenza Vaccination/Date Given: No Hx Pneumococcal Vaccination/Date Given: No Travel Risk - International Travel Have you traveled outside of the country in past 3 weeks: No - Coronavirus Screening Are you exhibiting any of the following symptoms?: No Close contact with a COVID-19 positive Pt in past 14-21 Days: No - Vaccine Status Have you recieved a Covid-19 vaccination: No - Review of Systems Constitutional: No Symptoms Eyes: No Symptoms Ears, Nose, & Throat: No Symptoms Respiratory: No Symptoms Cardiac: No Symptoms Abdominal/Gastrointestinal: No Symptoms Genitourinary Symptoms: No Symptoms Musculoskeletal: Fall, Injury (Right knee) Skin: No Symptoms Neurological: No Symptoms Psychological: No Symptoms Endocrine: No Symptoms Hematologic/Lymphatic: No Symptoms Immunological/Allergic: No Symptoms - Past Medical History Pertinent Past Medical History: Yes Neurological History: No Pertinent History ENT History: No Pertinent History Cardiac History: Hypertension Respiratory History: No Pertinent History Endocrine Medical History: No Pertinent History Musculoskeletal History: No Pertinent History GI Medical History: No Pertinent History History: No Pertinent History Psycho-Social History: No Pertinent History Male Reproductive Disorders: No Pertinent History - Past Surgical History Past Surgical History: Yes Musculoskeletal: Orthopedic Surgery Other Surgical History: KNEE, PINS IN LEG, carpal tunnel - Social History Smoking Status: Never smoker Exposure to second hand smoke: No Drug Use: none Patient Lives Alone: No - Nursing Vital Signs Nursing Vital Signs: Initial Vital Signs Temperature 97.8 F 11/02/22 10:35 Pulse Rate 95 H 11/02/22 10:35 Respiratory Rate 18 11/02/22 10:35 Blood Pressure 122/61 11/02/22 10:35 O2 Sat by Pulse Oximetry 98 11/02/22 10:35 Pain Scale Pain Intensity 9 - Physical Exam General Appearance: no apparent distress, alert, anxiety Eyes, Ears, Nose, Throat Exam: normal ENT inspection, moist mucous membranes Neck Exam: normal inspection, non-tender, supple, full range of motion Cardiovascular/Respiratory Exam: chest non-tender, no respiratory distress Gastrointestinal/Abdominal Exam: non-tender Back Exam: normal inspection, normal range of motion, No CVA tenderness, No v ertebral tenderness Hips Exam: bilateral: non-tender, normal inspection, normal range of motion, no evidence of injury Legs Exam: bilateral leg: non-tender, normal inspection, normal range of motion, no evidence of injury Knees Exam: right knee: bone tenderness, soft tissue tenderness, left knee: non- tender, bilateral knee: normal inspection, normal range of motion, no evidence of injury Ankle Exam: bilateral ankle: non-tender, normal inspection, normal range of motion, no evidence of injury Foot Exam: bilateral foot: non-tender, normal inspection, normal range of motion, no evidence of injury Neuro/Tendon Exam: normal sensation, normal motor functions, normal tendon functions, responds to pain, no evidence tendon injury Mental Status Exam: alert, oriented x 3, cooperative Skin Exam: normal color, warm, dry SpO2 Interpretation: normal O2 Delivery: Room Air - Course Nursing assessment & vital signs reviewed: Yes Ordered Tests: Active Orders 24 hr Category Date Time Status KNEE (3 VIEWS) Stat Exams 11/02/22 10:44 Completed Medication Summary Generic Name Dose Route Start Last Admin Trade Name Freq PRN Reason Stop Dose Admin Ondansetron HCl 4 mg 11/02/22 11:23 Zofran 4 Mg/Udtablet Orally Disintegrating PO 11/02/22 11:24 STAT ONE Orphenadrine Citrate 60 mg 11/02/22 11:23 Orphenadrine Citrate 60 Mg/2 Ml Vial IM 11/02/22 11:24 STAT ONE Discontinued Medications Generic Name Dose Route Start Last Admin Trade Name Freq PRN Reason Stop Dose Admin Hydromorphone HCl 0.5 mg 11/02/22 11:22 Hydromorphone 1 Mg/1ml Inj 1 Mg/Ml Syringe IM 11/02/22 11:23 STAT ONE - Progress Progress: improved, pain not gone completely, re-examined Progress Note: 11/02/22 11:21 Right knee x-ray shows no acute fracture or dislocation. Counseled pt/family regarding: diagnosis, need for follow-up, rad results - Departure Departure Disposition: Home Clinical Impression: Right knee sprain Condition: Stable Critical Care Time: No Referrals: SAMMIE MORENO MD [Primary Care Provider] - Follow up/PCP as directed Additional Instructions: Continue your [place] pain medicine as prescribed. Add ice pack to tender right knee 3 times a day for the next 48 hours. Follow-up in [facility] orthopedic clinic for persistent symptoms. If there are no contraindications, add ibuprofen 600 mg orally 3 times a day with food for 5 days. Call your primary care provider and your pain specialist for further management of your right knee pain
--- NOTE | 2022-11-02 11:21 | XRAY ---
Indication: Pain following fall. Comparison: None 3 view right knee demonstrates minimal/mild tricompartmental degenerative changes and small posterior fabella. No other bony, articular, or soft tissue abnormalities.
[2022-11-02] MEDS ORDERED: Hydromorphone 1 mg/ml Injection IM ONE (11:22)
[2022-11-02] MEDS ORDERED: ZOFRAN ODT 4 MG PO ONE (11:23)
[2022-11-02] MEDS ORDERED: Norflex 60 MG/2 ML IM ONE (11:23)
[2022-11-02] MEDS ORDERED: ZOFRAN ODT 4 MG ONE (11:40)
[2022-11-02] MEDS ORDERED: Norflex 60 MG/2 ML ONE (11:40)
[2022-11-02] MEDS ORDERED: Hydromorphone 1 mg/ml Injection ONE (11:42)
[2022-11-02 12:13] VITALS: BP 122/72; PULSE 81; O2SAT 94
== END 2022-11-02 12:13 | disposition home or self-care (01) ==
LOC: ED 10:29
DX: S83.91XA Sprain of unspecified site of right knee, initial encounter (principal); W00.0XXA Fall on same level due to ice and snow, initial encounter; Y99.0 Civilian activity done for income or pay; I10 Essential (primary) hypertension; M25.511 Pain in right shoulder; Z79.891 Long term (current) use of opiate analgesic; Z79.899 Other long term (current) drug therapy; Z28.310 Unvaccinated for COVID-19
CPT/HCPCS: 73562; 93005; 96372; 99284; J1170; J2360; Q0162

== ENCOUNTER 2023-03-28 08:55 | Emergency (ER) | payer OTHER ==
[2023-03-28] MEDS ORDERED: TORAdol 30 mg Injection IM ONE (09:24)
[2023-03-28] MEDS ORDERED: TORAdol 30 mg Injection ONE (09:28)
--- NOTE | 2023-03-28 09:43 | ERPHSYRPT ---
- History of Present Illness Source: patient Exam Limitations: no limitations Patient Subjective Stated Complaint: C/O lower back injury that occurred Sunday evening when working on his truck. States he was pulling up on a [place] trying to break something loose on the truck but thinks he broke something loose in his back instead. Triage Nursing Assessment: Patient ambulated back to ED with bent forward gait. He is alert and oriented. No SOB. Physician History: 53 yo WM w lumbar pain x 3 days after torquing a large bolt. Pain is 10 on scale and worse w movement and upright position. Pain is described as sharp. He denies dysuria/hematuria/chest pain/abdominal pain/incontinence/lower extremity paralysis-decreased sensation. Pt has minimal hx of lumbar pain. Timing/Duration: other (3 days) Method of Injury: twisted, turning Quality: sharp Back Pain Location: lumbar spine Severity of Pain-Max: severe Severity of Pain-Current: severe Modifying Factors: Improves With: movement Associated Symptoms: denies symptoms Previous symptoms: no prior history Allergies/Adverse Reactions: No Known Drug Allergies Allergy (Verified 03/28/23 09:16) Home Medications: Lisinopril 5 mg [Zestril 5 MG] 5 mg PO BID 08/26/20 [History] Hx Tetanus, Diphtheria Vaccination/Date Given: Yes Hx Influenza Vaccination/Date Given: No Hx Pneumococcal Vaccination/Date Given: No Immunizations Up to Date: Yes Travel Risk - International Travel Have you traveled outside of the country in past 3 weeks: No - Coronavirus Screening Are you exhibiting any of the following symptoms?: No Close contact with a COVID-19 positive Pt in past 14-21 Days: No - Vaccine Status Have you recieved a Covid-19 vaccination: No - Review of Systems Constitutional: No Symptoms Eyes: No Symptoms Ears, Nose, & Throat: No Symptoms Respiratory: No Symptoms Cardiac: No Symptoms Abdominal/Gastrointestinal: No Symptoms Genitourinary Symptoms: No Symptoms Skin: No Symptoms Neurological: No Symptoms Psychological: No Symptoms Endocrine: No Symptoms Hematologic/Lymphatic: No Symptoms Immunological/Allergic: No Symptoms - Past Medical History Pertinent Past Medical History: Yes Neurological History: No Pertinent History ENT History: No Pertinent History Cardiac History: Hypertension Respiratory History: No Pertinent History Endocrine Medical History: No Pertinent History Musculoskeletal History: No Pertinent History GI Medical History: No Pertinent History History: No Pertinent History Psycho-Social History: No Pertinent History Male Reproductive Disorders: No Pertinent History - Past Surgical History Past Surgical History: Yes Musculoskeletal: Orthopedic Surgery Other Surgical History: KNEE, PINS IN LEG, carpal tunnel - Social History Smoking Status: Never smoker Exposure to second hand smoke: No Drug Use: none Patient Lives Alone: No - Nursing Vital Signs Nursing Vital Signs: Initial Vital Signs Temperature 98 F 03/28/23 09:18 Pulse Rate 71 03/28/23 09:18 Respiratory Rate 19 03/28/23 09:18 O2 Sat by Pulse Oximetry 98 03/28/23 09:18 Pain Scale Pain Intensity 8 WNL - Physical Exam General Appearance: no apparent distress Eye Exam: PERRL/EOMI, eyes nml inspection Ears, Nose, Throat Exam: normal ENT inspection, TMs normal, pharynx normal, moist mucous membranes Neck Exam: normal inspection, non-tender, supple, full range of motion, No meningismus, No mass, No Brudzinski, No Kernig's Respiratory Exam: normal breath sounds, lungs clear, airway intact, No respiratory distress Cardiovascular Exam: regular rate/rhythm, normal heart sounds, normal peripheral pulses, capillary refill <2 sec, No murmur Gastrointestinal Exam: soft, normal bowel sounds, No tenderness Back Exam: vertebral tenderness (Moderate mid-Lumbar spine) Extremity Exam: normal inspection, normal range of motion, pelvis stable Peripheral Pulses: carotid (R): 2+, carotid (L): 2+ Neurologic Exam: alert, oriented x 3, cooperative, 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, normal mood/affect, nml cerebellar function, nml station & gait, sensation nml Skin Exam: normal color, warm, dry, No rash Lymphatic Exam: No adenopathy SpO2 Interpretation: normal SpO2: 98 O2 Delivery: Room Air - Course Nursing assessment & vital signs reviewed: Yes - CT Exams Lumbar Spine CT Interpretation: Discussed w/radiologist (CT L-spine-No fx/DDD L4-S1,L2-L3) Ordered Tests: Active Orders 24 hr Category Date Time Status LUMBAR SPINE W/O [CT] Stat Exams 03/28/23 09:24 Completed Medication Summary Discontinued Medications Generic Name Dose Route Start Last Admin Trade Name Freq PRN Reason Stop Dose Admin Ketorolac Tromethamine 30 mg 03/28/23 09:24 03/28/23 09:30 Ketorolac Tromethamine 30 Mg/Ml Inj IM 03/28/23 09:25 30 mg STAT ONE Administration Ketorolac Tromethamine Confirm 03/28/23 09:28 Ketorolac Tromethamine 30 Mg/Ml Inj Administered 03/28/23 09:29 Dose 30 mg .ROUTE .STK-MED ONE Orphenadrine Citrate 60 mg 03/28/23 10:37 03/28/23 10:39 Orphenadrine Citrate 60 Mg/2 Ml Vial IV 03/28/23 10:38 Not Given STAT ONE Orphenadrine Citrate 60 mg 03/28/23 10:40 03/28/23 10:43 Orphenadrine Citrate 60 Mg/2 Ml Vial IM 03/28/23 10:41 60 mg STAT ONE Administration Orphenadrine Citrate Confirm 03/28/23 10:40 Orphenadrine Citrate 60 Mg/2 Ml Vial Administered 03/28/23 10:41 Dose 60 mg .ROUTE .STK-MED ONE - Progress Progress Note: 03/28/23 11:23 Nursing note and vital signs reviewed No food or housing insecurities noted 30mg IM Toradol w minimal improvement in pain 60mg IM Norflex CT results reviewed and shared w pt Pt wo focal weakness/incontinence/decreased sensation during entire visit Pt states that he has an appointment w Dr. Albarran for his pain Counseled pt/family regarding: diagnosis, need for follow-up, rad results Medical Desision Making - Diagnostic Testing Radiological Interpretation: Discussed w/ radiologist - Risk of complications The pt has a mod risk of morbidity or mortality based on: Need for prescription drug management - Departure Departure Disposition: Home Clinical Impression: Lumbar strain Condition: Stable Critical Care Time: No Referrals: SAMMIE MORENO MD [Primary Care Provider] - Follow up/PCP as directed Instructions: Low Back Pain (DC) Additional Instructions: Rest/Heat/Massage Follow up with your family Norflex/Toradol as needed for pain Return to ER as needed No lifting over 10 pounds for 1 week Forms: Work/School Release Form Prescriptions: Orphenadrine Citrate 100 mg [Norflex 100 MG Tablet] 100 mg PO BIDPRN PRN #20 tab PRN Reason: Pain Ketorolac Trometh 10 mg Tab [TORAdol 10 MG TABLET] 10 mg PO TID PRN PRN #10 tablet PRN Reason: Pain
--- NOTE | 2023-03-28 10:13 | XRAY ---
Indication: Pain following lifting injury. Multiple contiguous axial images obtained through the lumbar spine. Sagittal and coronal reformatted images obtained. Comparison: CT abdomen/pelvis August 26, 2020. Axial images negative for acute fracture, suspicious bony lesions, or spinal canal stenosis. There remains broad-based disc bulge at L4-S1 levels and L2-L3 degenerative vacuum disc phenomena. Facets are symmetric. Sagittal and coronal reformatted images again demonstrate normal lumbar alignment with L2-S1 disc space loss. No acute compression fracture or sublocation. Visualized noncontrasted soft tissues again demonstrates minimal aortoiliac calcifications. Impression: Again L2-S1 degenerative changes and minimal arteriosclerotic disease. Remaining CT lumbar spine is negative.
[2023-03-28] MEDS ORDERED: Norflex 60 MG/2 ML IV ONE (10:37)
[2023-03-28] MEDS ORDERED: Norflex 60 MG/2 ML IM ONE (10:40)
[2023-03-28] MEDS ORDERED: Norflex 60 MG/2 ML ONE (10:40)
[2023-03-28 10:46] VITALS: BP 130/87; PULSE 64
[2023-03-28 11:26] VITALS: O2SAT 98
== END 2023-03-28 11:00 | disposition home or self-care (01) ==
LOC: ED 08:55
DX: S39.012A Strain of muscle, fascia and tendon of lower back, initial encounter (principal); X50.0XXA Overexertion from strenuous movement or load, initial encounter; I10 Essential (primary) hypertension; Z79.899 Other long term (current) drug therapy; Z28.310 Unvaccinated for COVID-19
CPT/HCPCS: 72131; 96372; 99283; J1885; J2360

== ENCOUNTER 2024-05-26 23:00 | Emergency (ER) | payer OTHER ==
--- NOTE | 2024-05-26 23:04 | ERPHSYRPT ---
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 He was stuck by 3 different bees prior to arrival. He does not have an EpiPen available to him. Patient presents to the emergency room with swelling of his eyes lips and generalized rash that itches. Patient has a history of hypertension. His primary care provider is Dr. Moreno. He denies stridor or wheezing. He does not have shortness of breath or chest pain. Timing/Duration: today Severity: moderate Associated Symptoms: rash, other (Facial swelling) Allergies/Adverse Reactions: bee venom protein (honey bee) Allergy (Verified 05/26/24 23:01) Anaphylactic Reaction Home Medications: Lisinopril 5 mg [Zestril 5 MG] 5 mg PO BID 08/26/20 [History] Hx Tetanus, Diphtheria Vaccination/Date Given: Yes Hx Influenza Vaccination/Date Given: No Hx Pneumococcal Vaccination/Date Given: No Travel Risk - International Travel Have you traveled outside of the country in past 3 weeks: No - Emerging Infectious Disease Are you exhibiting symptoms associated with any current EIDs: No - Review of Systems Constitutional: No Symptoms Eyes: No Symptoms Ears, Nose, & Throat: No Symptoms Respiratory: No Symptoms Cardiac: No Symptoms Abdominal/Gastrointestinal: No Symptoms Genitourinary Symptoms: No Symptoms Musculoskeletal: No Symptoms Skin: Rash (Allergic reaction/hives around the patient's eyes and face with swelling lips.), Other Neurological: No Symptoms Psychological: No Symptoms Endocrine: No Symptoms Hematologic/Lymphatic: No Symptoms Immunological/Allergic: No Symptoms All Other Systems: Reviewed and Negative - Past Medical History Pertinent Past Medical History: Yes Neurological History: No Pertinent History ENT History: No Pertinent History Cardiac History: Hypertension Respiratory History: No Pertinent History Endocrine Medical History: No Pertinent History Musculoskeletal History: No Pertinent History GI Medical History: No Pertinent History History: No Pertinent History Psycho-Social History: No Pertinent History Male Reproductive Disorders: No Pertinent History - Past Surgical History Past Surgical History: Yes Musculoskeletal: Orthopedic Surgery Other Surgical History: KNEE, PINS IN LEG, carpal tunnel - Social History Smoking Status: Never smoker Exposure to second hand smoke: No Drug Use: none Patient Lives Alone: No - Nursing Vital Signs Nursing Vital Signs: Initial Vital Signs Temperature 97.9 F 05/26/24 23:01 Pulse Rate 91 H 05/26/24 23:01 Respiratory Rate 20 05/26/24 23:01 Blood Pressure 94/58 05/26/24 23:01 O2 Sat by Pulse Oximetry 92 L 05/26/24 23:01 Pain Scale Pain Intensity 0 - Physical Exam General Appearance: mild distress, alert, anxiety Eye Exam: PERRL/EOMI, eyes nml inspection, other (Swelling and redness around the patient's eyes) Ears, Nose, Throat Exam: moist mucous membranes, other (Swelling around the patient's face and lips) Neck Exam: normal inspection, non-tender, supple, full range of motion Respiratory Exam: normal breath sounds, lungs clear, airway intact, No chest tenderness, No respiratory distress Cardiovascular Exam: regular rate/rhythm, normal heart sounds, normal peripheral pulses Gastrointestinal/Abdomen Exam: soft, normal bowel sounds, No tenderness Rectal Exam: not done Back Exam: normal inspection, normal range of motion, No CVA tenderness, No vertebral tenderness Extremity Exam: normal inspection, normal range of motion, pelvis stable Neurologic Exam: alert, oriented x 3, cooperative, ballistics laboratory gunsmith II-XII nml as tested, nml cerebellar function, nml station & gait, sensation nml Skin Exam: rash (Generalized pink rash about face anterior torso and legs anteriorly) Lymphatic Exam: No adenopathy SpO2 Interpretation: normal O2 Delivery: Room Air - Course Nursing assessment & vital signs reviewed: Yes Ordered Tests: Medication Summary Discontinued Medications Generic Name Dose Route Start Last Admin Trade Name Karen PRN Reason Stop Dose Admin Methylprednisolone Sodium 0 mg 05/26/24 23:07 05/26/24 23:14 Succinate 125 mg/ Sterile IV 05/26/24 23:08 125 mg Water 2 ml STAT ONE Administration Diphenhydramine HCl 50 mg 05/26/24 23:07 05/26/24 23:14 Diphenhydramine Hcl 50 Mg/Ml Vial IV 05/26/24 23:08 50 mg STAT ONE Administration Diphenhydramine HCl Confirm 05/26/24 23:12 Diphenhydramine Hcl 50 Mg/Ml Vial Administered 05/26/24 23:13 Dose 50 mg .ROUTE .STK-MED ONE Epinephrine HCl 0.3 mg 05/26/24 23:07 05/26/24 23:14 Epinephrine 1 Mg/1 Ml Pf Amp 1 Mg/Ml Ml SQ 05/26/24 23:08 0.3 mg STAT ONE Administration Epinephrine HCl Confirm 05/26/24 23:13 Epinephrine 1 Mg/1 Ml Pf Amp 1 Mg/Ml Ml Administered 05/26/24 23:14 Dose 1 mg .ROUTE .STK-MED ONE Famotidine 40 mg 05/26/24 23:07 05/26/24 23:14 Famotidine 20 Mg/1 Vial IV 05/26/24 23:08 40 mg STAT ONE Administration Famotidine Confirm 05/26/24 23:12 Famotidine 20 Mg/1 Vial Administered 05/26/24 23:13 Dose 40 mg IV .STK-MED ONE Methylprednisolone Sodium Succinate Confirm 05/26/24 23:13 Methylprednis Sod Succ 125 Mg/2 Ml Vial Administered 05/26/24 23:14 Dose 125 mg .ROUTE .STK-MED ONE Ondansetron HCl 4 mg 05/26/24 23:07 05/26/24 23:13 Ondansetron Hcl 4 Mg/2 Ml Vial IV 05/26/24 23:08 4 mg STAT ONE Administration Ondansetron HCl Confirm 05/26/24 23:12 Ondansetron Hcl 4 Mg/2 Ml Vial Administered 05/26/24 23:13 Dose 4 mg .ROUTE .STK-MED ONE Sterile Water Confirm 05/26/24 23:12 Water For Injection,Sterile 10 Ml Vial Administered 05/26/24 23:13 Dose 10 ml IJ .STK-MED ONE - Progress Progress: improved, re-examined Progress Note: 05/26/24 23:42 My medical decision making and the assignment of low to moderate complexity of this patient's medical issue today is based on review of the patient's past medical history, review of the patient's medication list, reviewed patient drug allergy list, history present illness and physical findings on examination. The workup in this patient includes placement of intravenous line, infusion of intravenous Benadryl, Pepcid and Solu-Medrol. Patient is receiving a dose of epinephrine as well. No laboratory radiographic studies necessary. 05/26/24 23:43 Reexamined the patient. Patient's swelling about his face and lips have much improved as has the itching. Patient and the patient's feel comfortable with him being discharged. His room air oxygensaturation levels are 97 to 98%. Counseled pt/family regarding: diagnosis, need for follow-up Medical Desision Making - Independent Historian Additional History obtained from: Spouse - Diagnostic Testing Diagnostic test were ordered, analyzed, and reviewed by me: No - Risk of complications The pt has a mod risk of morbidity or mortality based on: Need for prescription drug management - Departure Departure Disposition: Home Clinical Impression: Allergic reaction Condition: Stable Critical Care Time: No Referrals: SAMMIE MORENO MD [Primary Care Provider] - Follow up/PCP as directed Additional Instructions: Take Benadryl 25 mg orally 3 times a day for the next 5 days. Take your prescription Pepcid and prednisone as prescribed. Use the EpiPen as prescribed. Call your primary care provider tomorrow, 05/27/2024 to make arrangements for follow-up appointment for further evaluation management. Prescriptions: Prednisone 10 mg [Deltasone 10 mg] 10 mg PO TID #12 tablet EPINEPHrine [Epipen 2-Sudhir] 0.3 mg IJ UD #2 units Famotidine 20 mg [Pepcid 20 MG] 20 mg PO DAILY #5 tablet
[2024-05-26 23:11] VITALS: TEMP 97.9
[2024-05-26] MEDS ORDERED: Pepcid 20 MG VIAL IV ONE (23:12)
[2024-05-26] MEDS ORDERED: Sterile H2O 10 ml IJ ONE (23:12)
[2024-05-26] MEDS ORDERED: BENADRYL 50 MG/ML ONE (23:12)
[2024-05-26] MEDS ORDERED: Zofran 4 MG/2 ML VIAL ONE (23:12)
[2024-05-26] MEDS ORDERED: Epinephrine Preservative Free 1 MG/ML ONE (23:13)
[2024-05-26] MEDS ORDERED: solu-MEDROL ONE (23:13)
[2024-05-26] MEDS: Zofran 4 MG/2 ML VIAL IV ONE (23:13)
[2024-05-26] MEDS: solu-MEDROL 125 MG, Sterile H2O 10 ml 2 ML IV ONE (23:14)
[2024-05-26] MEDS: Pepcid 20 MG VIAL IV ONE (23:14)
[2024-05-26] MEDS: Epinephrine Preservative Free 1 MG/ML SQ ONE (23:14)
[2024-05-26] MEDS: BENADRYL 50 MG/ML IV ONE (23:14)
[2024-05-27 00:41] VITALS: BP 107/69; PULSE 76; RESP 16; O2SAT 97
== END 2024-05-27 00:43 | disposition home or self-care (01) ==
LOC: ED 23:00
DX: T63.441A Toxic effect of venom of bees, accidental (unintentional), initial encounter (principal); R21 Rash and other nonspecific skin eruption; R22.0 Localized swelling, mass and lump, head; Z79.52 Long term (current) use of systemic steroids; Z79.899 Other long term (current) drug therapy
CPT/HCPCS: 96372; 96374; 99283; J0171; J1200; J2405; J2919

== ENCOUNTER 2025-02-28 08:57 | Emergency (ER) | payer OTHER ==
--- NOTE | 2025-02-28 09:03 | ERPHSYRPT ---
- History of Present Illness Time Seen by Provider: 02/28/25 09:03 Source: patient Exam Limitations: no limitations Physician History: This is a right handed 54-year-old white male patient who arrives by private vehicle and whose primary care doctor is Dr. Moreno. He presents with left hand pain and swelling that occurred yesterday, 02/27/2025, while he was putting up fence post. The heavier post started to fall and when he stuck his hand out to keep it from falling, he pinched his hand between 2 heavier posts. The pain was not better this morning and he was concerned about possible fracture or dislocation. The patient states that he does a lot of this type of work using his hands and has injured his left hand multiple times in the past. Occurred: yesterday Method of Injury: direct blow Quality: aching, throbbing Severity of Pain-Max: moderate Severity of Pain-Current: moderate Extremities Pain Location: hand: left Modifying Factors: Improves With: movement Associated Symptoms: none Allergies/Adverse Reactions: bee venom protein (honey bee) Allergy (Verified 02/28/25 09:00) Anaphylactic Reaction Home Medications: Lisinopril 5 mg [Zestril 5 MG] 5 mg PO DAILY 02/28/25 [History] Metformin HCl [Metformin HCl ER] 500 mg DAILY 02/28/25 [History] Hx Tetanus, Diphtheria Vaccination/Date Given: Yes Hx Influenza Vaccination/Date Given: No Hx Pneumococcal Vaccination/Date Given: No Travel Risk - International Travel Have you traveled outside of the country in past 3 weeks: No - Emerging Infectious Disease Are you exhibiting symptoms associated with any current EIDs: No - Review of Systems Constitutional: No Symptoms Eyes: No Symptoms Ears, Nose, & Throat: No Symptoms Respiratory: No Symptoms Cardiac: No Symptoms Abdominal/Gastrointestinal: No Symptoms Genitourinary Symptoms: No Symptoms Musculoskeletal: Injury (Left hand) Skin: No Symptoms Neurological: No Symptoms Psychological: No Symptoms Endocrine: No Symptoms Hematologic/Lymphatic: No Symptoms Immunological/Allergic: No Symptoms All Other Systems: Reviewed and Negative - Past Medical History Pertinent Past Medical History: Yes Neurological History: No Pertinent History ENT History: No Pertinent History Cardiac History: Hypertension Respiratory History: No Pertinent History Endocrine Medical History: Diabetes Type II Musculoskeletal History: No Pertinent History GI Medical History: No Pertinent History History: No Pertinent History Psycho-Social History: No Pertinent History Male Reproductive Disorders: No Pertinent History - Past Surgical History Past Surgical History: Yes Musculoskeletal: Orthopedic Surgery Other Surgical History: KNEE, PINS IN LEG, carpal tunnel - Social History Smoking Status: Never smoker Exposure to second hand smoke: No Drug Use: none Patient Lives Alone: No - Social Determinants of Health Will the patient participate in the screening: Yes Do you worry about a steady place to live?: No In the past 12 months,have you had to go without utilities?: No Transportation Issues: No Has anyone in your support network made you feel unsafe?: No Have you or anyone in your house had to go w/o enough food: No - Nursing Vital Signs Nursing Vital Signs: Initial Vital Signs Temperature 97.2 F 02/28/25 09:18 Pulse Rate 70 02/28/25 09:18 Respiratory Rate 18 02/28/25 09:18 Blood Pressure 176/104 02/28/25 09:18 O2 Sat by Pulse Oximetry 97 02/28/25 09:18 Pain Scale Pain Intensity 10 - Physical Exam General Appearance: no apparent distress, alert, anxiety Eyes, Ears, Nose, Throat Exam: normal ENT inspection, moist mucous membranes Neck Exam: normal inspection, non-tender, supple, full range of motion Cardiovascular/Respiratory Exam: chest non-tender, no respiratory distress Abdominal Exam: non-tender Back Exam: normal inspection, normal range of motion, No CVA tenderness, No vertebral tenderness Shoulder Exam: normal inspection, non-tender, no evidence of injury, normal ROM Elbow/Forearm Exam: normal inspection, non-tender, no evidence of injury, normal ROM Wrist Exam: normal inspection, non-tender, no evidence of injury, normal ROM Hand Exam: normal ROM, soft tissue tenderness (In the left eminence region), swelling (Mild in the left thenar eminence region) Neuro/Tendon Exam: normal sensation, normal motor functions, normal tendon functions, no evidence tendon injury Mental Status Exam: alert, oriented x 3, cooperative Skin Exam: normal color, warm SpO2 Interpretation: normal O2 Delivery: Room Air - Course Nursing assessment & vital signs reviewed: Yes Ordered Tests: Active Orders 24 hr Category Date Time Status HAND (MINIMUM 3 VIEWS) Stat Exams 02/28/25 09:16 Completed Medication Summary Discontinued Medications Generic Name Dose Route Start Last Admin Trade Name Freq PRN Reason Stop Dose Admin Acetaminophen 650 mg 02/28/25 10:26 02/28/25 10:35 Acetaminophen 325 Mg Tablet PO 02/28/25 10:27 650 mg STAT ONE Administration Acetaminophen Confirm 02/28/25 10:34 Acetaminophen 325 Mg Tablet Administered 02/28/25 10:35 Dose 650 mg .ROUTE .STK-MED ONE Ibuprofen 600 mg 02/28/25 10:22 02/28/25 10:35 Ibuprofen 600 Mg Tablet PO 02/28/25 10:23 Not Given STAT ONE Ibuprofen Confirm 02/28/25 10:23 Ibuprofen 600 Mg Tablet Administered 02/28/25 10:24 Dose 600 mg .ROUTE .STK-MED ONE - Progress Progress: unchanged Progress Note: 02/28/25 09:45 My medical decision making and the assignment of low complexity to this patient's medical issue today is based on review of the patient's past medical history, review the patient's medication list, review of the patient's medication allergies, history present illness and physical findings on examin ation. The workup in this patient includes x-ray of the left hand and left thumb. Differential diagnosis includes but is not limited to contusion left hand, fracture or dislocation left hand/left thumb I interpreted the preliminary report of the patient's left hand x-ray and left thumb x-ray. I do not appreciate an acute fracture or dislocation. There are chronic changes present. There appears to have been chronic injuries in the past. I will send the studies to the radiologist for final report. 02/28/25 10:37 The radiologist interpreted the x-ray of the left hand and left thumb. His i nterpretation reads minimally displaced fracture of the trapezium with intra- articular extension and dorsal angulation. Dislocation of the first carpalmetacarpal joint. I observed the placement of the splint in the patient's left hand which includes the hand and the thumb. The post splint neurovascular check shows it to be intact. There is brisk capillary refill in the fingers and thumb. 02/28/25 10:55 I made an appointment for him to be seen at the [facility] orthopedic clinic through Dhruv Marquis nurse practitioner's name. Counseled pt/family regarding: diagnosis, need for follow-up, rad results Medical Desision Making - Diagnostic Testing Diagnostic test were ordered, analyzed, and reviewed by me: Yes Radiological Interpretation: Interpreted by me, Reviewed by me, Teleradiologist Report - Risk of complications The pt has a mod risk of morbidity or mortality based on: Need for prescription drug management - Departure Departure Disposition: Home Clinical Impression: Trapezium bone fracture, closed, Carpometacarpal joint dislocation Condition: Stable Critical Care Time: No Referrals: SAMMIE MORENO MD [Primary Care Provider, INTERNAL MEDICINE] - Follow up/PCP as directed DHRUV MARQUIS NP [NON-STAFF PHY W/O PRIVILEGES, UNKNOWN] - Follow up/PCP as directed Additional Instructions: ice pack left hand 3 times a day for the next 72 hours. Use ibuprofen 600 mg orally with food 3 times a day for the next 5 days. Follow-up at the [facility] orthopedic clinic on Sunday morning, 03/02/2025, at 8 AM. It is a walk-in clinic and you do not need to have an appointment. Prescriptions: Oxycodone HCl/Acetaminophen [Percocet 5-325 mg Tablet] 1 each PO Q8H PRN PRN #6 tablet MDD 3 PRN Reason: Moderate To Severe Pain
[2025-02-28 09:19] VITALS: BP 176/104; PULSE 70; TEMP 97.2; O2SAT 97
[2025-02-28 10:05] VITALS: RESP 16
[2025-02-28] MEDS ORDERED: MOTRIN 600 MG ONE (10:23)
[2025-02-28] MEDS: MOTRIN 600 MG PO ONE (10:24)
--- NOTE | 2025-02-28 10:33 | XRAY ---
CLINICAL HISTORY: pain COMPARISON: No prior studies available for comparison. TECHNIQUE: X-ray images of the left hand were obtained in [place], lateral, and oblique projections. FINDINGS: Bone Structure: Minimally displaced fracture of the trapezium with intra-articular extension and dorsal angulation. Dislocation of the first carpometacarpal joint. Joint Spaces: Dislocation of the first carpometacarpal joint. No evidence of joint effusion . Soft Tissues: Multiple foci of soft tissue calcification are adjacent to the first carpometacarpal joint. Additional Findings: No signs of osteoarthritis, bone spurs, lytic or sclerotic lesions. Probably a small foreign body within soft tissue at the level of the proximal phalanx of the thumb. IMPRESSION: 1. Minimally displaced fracture of the trapezium with intra-articular extension and dorsal angulation. 2. Dislocation of the first carpometacarpal joint. 3. Multiple foci of soft tissue calcification or intraarticular calcification are adjacent to the first carpometacarpal joint. 4. Probably a small foreign body within soft tissue at the level of the proximal phalanx of the thumb. Disclaimer: A subtle bone abnormality or fracture may not be readily apparent on X-rays, thus clinical correlation and further imaging including follow-up CT, MRI, or follow-up X-rays are advised as needed. Electronically Signed by: Meka Drummond MD. (02/28/2025 10:29:21 EDT)
[2025-02-28] MEDS ORDERED: TYLENOL 325 MG ONE (10:34)
[2025-02-28] MEDS: TYLENOL 325 MG PO ONE (10:35)
== END 2025-02-28 11:04 | disposition home or self-care (01) ==
LOC: ED 08:57
DX: S62.172A Displaced fracture of trapezium [larger multangular], left wrist, initial encounter for closed fracture (principal); S63.045A Dislocation of carpometacarpal joint of left thumb, initial encounter; W23.0XXA Caught, crushed, jammed, or pinched between moving objects, initial encounter; I10 Essential (primary) hypertension; E11.9 Type 2 diabetes mellitus without complications; Z79.891 Long term (current) use of opiate analgesic; Z79.899 Other long term (current) drug therapy
CPT/HCPCS: 29125; 73130; 99283; A9270-GY